=== PATIENT | female | born 1960 | race Caucasian/White ===

== ENCOUNTER → 2016-12-11 | Outpatient (CLI) | payer MEDICARE, MEDICAID ==
[~2016-12-11] MED LIST: DOCU10ELUD GT; FLUT1SPR2; LEVO75TA4 PO; LORA10TA2 PO; MELO7.5T6 PO; OMEP20CA3 PO; PANT40TA2 PO; SUCR1SUS PO; TAB-TAB PO; TOPA100T8 PO; VIACCHW4 PO
--- NOTE | 2016-12-11 10:10 | REPMRS ---
Patient History The patient states she had a clinical breast exam in 11/27. Patient is postmenopausal and is nulliparous. No known family history of cancer. Digital Woman Screen Mammo: December 11, 2016 - Exam #: [id number] Bilateral CC and MLO view(s) were taken. Technologist: Isabel Enriquez, Technologist Prior study comparison: December 08, 2015, digital woman screen mammo performed at [facility]. November 16, 2014, digital woman screen mammo performed at [facility]. September 29, 2013, digital woman screen mammo performed at [facility]. FINDINGS: There are scattered fibroglandular densities. There is a moderate amount of residual fibroglandular tissue which is fairly symmetric. Pacemaker power plant projects over the left breast as before. There is no interval development of dominant mass, architectural distortion, or clustered microcalcification typical of malignancy. There has been no change in the appearance of the mammogram from the prior studies. ASSESSMENT: BI-RADS/ACR category 1 mammogram. Negative. Recommendation Routine screening mammogram of both breasts in 1 year (for women over age 40). This mammogram was interpreted with the aid of an FDA-approved computer-aided dectection system. Electronically Signed By: Goran Villarreal MD 12/11/16 [id number]
== END ==
LOC: M WHC 09:02
PROVIDERS: ATTEND Nurse Practitioner Family
DX: Z12.31 Encounter for screening mammogram for malignant neoplasm of breast (principal); Z92.89 Personal history of other medical treatment
CPT/HCPCS: G0202; G0463

== ENCOUNTER → 2017-01-09 | Outpatient (CLI) | payer MEDICARE, MEDICAID ==
[~2017-01-09] VITALS: Ht 142.2 cm; Wt 53.5 kg
[~2017-01-09] MED LIST changes: +CALC500T49 PO; +LIDOCAINE 2% INJ 100 MG/5 ML SDV (FOR ANES.) As Ordered ONE; +NS 1,000 ML IV SCH; +PROPOFOL 200 MG/20 ML VIAL As Ordered ONE; +fentaNYL 100 MCG/2 ML INJECTION (J3010) As Ordered ONE
--- NOTE | 2017-01-09 11:57 | ROOR ---
Patient Name: Asiya Saini Procedure Date: 01/09/2017 11:32 AM Date of : 1960 Age: 56 Room: [facility] Gender: Female Note Status: Finalized Procedure: Upper GI endoscopy Indications: Pyloric stenosis Providers: Ricardo Kaba MD Referring MD: KAIA GARCIA DO Requesting Provider: Medicines: Monitored Anesthesia Care Complications: No immediate complications. Procedure: Pre-Anesthesia Assessment: - Prior to the procedure, a History and Physical was performed, and patient medications and allergies were reviewed. The patient is unable to give consent secondary to the patient being legally incompetent to consent. The risks and benefits of the procedure and the sedation options and risks were discussed with the patient's brother. All questions were answered and informed consent was obtained. Patient identification and proposed procedure were verified by the physician, the nurse and the anesthesiologist in the endoscopy suite. Mental Status Examination: alert but confused. Airway Examination: normal oropharyngeal airway and neck mobility. Respiratory Examination: clear to auscultation. CV Examination: status post pacemaker placement. Prophylactic Antibiotics: The patient does not require prophylactic antibiotics. Prior Anticoagulants: The patient has taken no previous anticoagulant or antiplatelet agents. ASA Grade Assessment: III - A patient with severe systemic disease. After reviewing the risks and benefits, the patient was deemed in satisfactory condition to undergo the procedure. The anesthesia plan was to use monitored anesthesia care (MAC). Immediately prior to administration of medications, the patient was re-assessed for adequacy to receive sedatives. The heart rate, respiratory rate, oxygen saturations, blood pressure, adequacy of pulmonary ventilation, and response to care were monitored throughout the procedure. The physical status of the patient was re-assessed after the procedure. The Endoscope was introduced through the mouth, and advanced to the pylorus. The upper GI endoscopy was technically difficult and complex due to stricture. The patient tolerated the procedure fairly well. Findings: The examined esophagus was normal. moderately enlarged stomach, Estimated blood loss: none. Estimated blood loss: none. A benign-appearing, intrinsic severe stenosis was found at the pylorus. This was non-traversed. This was biopsied with a cold forceps for histology. Estimated blood loss was minimal. Impression: - Normal esophagus. - Gastric stenosis was found at the pylorus. Biopsied. Recommendation: - Discharge patient to home (ambulatory). - Mechanical soft diet indefinitely. - The findings and recommendations were discussed with the patient's family. - Discussed with brother. No active ulcers noted, fixed stricture at pylorus. Currently able to tolerate soft foods without weight loss. If they decide to have surgery, will refer out to [facility]. Ricardo Kaba MD Ricardo Kaba MD 01/09/2017 11:57:08 AM This report has been signed electronically. Number of Addenda: 0 Note Initiated On: 01/09/2017 11:32 AM Estimated Blood Loss: Estimated blood loss was minimal.
[2017-01-09 12:10] VITALS: BP 117/80
== END ==
LOC: M OPP 10:32
PROVIDERS: ATTEND Surgery
DX: K31.1 Adult hypertrophic pyloric stenosis (principal); E03.9 Hypothyroidism, unspecified; I34.0 Nonrheumatic mitral (valve) insufficiency; K21.9 Gastro-esophageal reflux disease without esophagitis; R56.9 Unspecified convulsions; Q90.9 Down syndrome, unspecified; K27.3 Acute peptic ulcer, site unspecified, without hemorrhage or perforation; Z95.0 Presence of cardiac pacemaker; F41.9 Anxiety disorder, unspecified; G47.30 Sleep apnea, unspecified; R32 Unspecified urinary incontinence; Z79.899 Other long term (current) drug therapy
CPT/HCPCS: 43239; 88305; 99156; 99157; J3010

== ENCOUNTER → 2017-01-21 | Outpatient (REF) | payer MEDICARE, MEDICAID ==
[~2017-01-21] MED LIST changes: -LIDOCAINE 2% INJ 100 MG/5 ML SDV (FOR ANES.) As Ordered ONE; -NS 1,000 ML IV SCH; -PROPOFOL 200 MG/20 ML VIAL As Ordered ONE; -fentaNYL 100 MCG/2 ML INJECTION (J3010) As Ordered ONE
[2017-01-21 11:51] LABS: MEAN CORPUSCULAR HEMOGLOBIN 30.7 pg (27.0-33.0); MEAN CORPUSCULAR HGB CONC 32.3 g/dl (32.0-36.5); RED CELL DISTRIBUTION WIDTH 14.9 % (11.5-14.5); WHITE BLOOD COUNT 4.8 K/mm3 (4.0-10.0)
[2017-01-21 12:09] LABS: ALBUMIN 3.5 GM/DL (3.2-5.2); ALBUMIN/GLOBULIN RATIO 0.81 (1.00-1.93); BILIRUBIN,TOTAL 0.4 MG/DL (0.2-1.0); CALCIUM LEVEL 8.8 MG/DL (8.5-10.1); CREATININE FOR GFR 1.31 MG/DL (0.55-1.02); FREE T4 1.11 NG/DL (0.76-1.46); GLOMERULAR FILTRATION RATE 44.7 (>51); POTASSIUM SERUM 4.1 MEQ/L (3.5-5.1); TOTAL PROTEIN 7.8 GM/DL (6.4-8.2)
== END ==
LOC: M SFHCCLAY 08:40
PROVIDERS: ATTEND Family Medicine
DX: Q90.9 Down syndrome, unspecified (principal); E03.9 Hypothyroidism, unspecified; I49.9 Cardiac arrhythmia, unspecified; K21.9 Gastro-esophageal reflux disease without esophagitis; F03.90 Unspecified dementia, unspecified severity, without behavioral disturbance, psychotic disturbance, mood disturbance, and anxiety; G40.909 Epilepsy, unspecified, not intractable, without status epilepticus

== ENCOUNTER → 2017-07-26 | Outpatient (REF) | payer MEDICARE, MEDICAID ==
[~2017-07-26] MED LIST changes: -MELO7.5T6 PO; +MELO7.5T7 PO; +TOPA100T12 PO; -TOPA100T8 PO
[2017-07-26 11:39] LABS: MEAN CORPUSCULAR HEMOGLOBIN 32.1 pg (27.0-33.0); MEAN CORPUSCULAR HGB CONC 33.3 g/dl (32.0-36.5); MEAN CORPUSCULAR VOLUME 96.5 fl (80.0-96.0); WHITE BLOOD COUNT 4.4 K/mm3 (4.0-10.0)
[2017-07-26 12:10] LABS: ALBUMIN 3.5 GM/DL (3.2-5.2); ALBUMIN/GLOBULIN RATIO 0.74 (1.00-1.93); BILIRUBIN,TOTAL 0.6 MG/DL (0.2-1.0); CALCIUM LEVEL 8.9 MG/DL (8.5-10.1); CREATININE FOR GFR 1.2 MG/DL (0.55-1.02); FREE T4 1.31 NG/DL (0.76-1.46); GLOMERULAR FILTRATION RATE 49.5 (>51); POTASSIUM SERUM 4.3 MEQ/L (3.5-5.1); TOTAL PROTEIN 8.2 GM/DL (6.4-8.2)
== END ==
LOC: M SFHCCLAY 08:31
PROVIDERS: ATTEND Family Medicine
DX: Q90.9 Down syndrome, unspecified (principal); E03.9 Hypothyroidism, unspecified

== ENCOUNTER → 2017-09-17 | Outpatient (REF) | payer MEDICARE, MEDICAID ==
[2017-09-20 00:06] LABS: TOPIRAMATE LEVEL 10.8 ug/mL (2.0-25.0)
== END ==
LOC: M LABDRAWC 17:32
PROVIDERS: ATTEND Physician Assistant Medical
DX: R56.9 Unspecified convulsions (principal); Z51.81 Encounter for therapeutic drug level monitoring; Z79.899 Other long term (current) drug therapy

== ENCOUNTER → 2018-03-06 | Outpatient (CLI) | payer MEDICARE, MEDICAID | LOC: M WHC 10:11 | DX: Z12.31 Encounter for screening mammogram for malignant neoplasm of breast (principal); N95.9 Unspecified menopausal and perimenopausal disorder; R92.8 Other abnormal and inconclusive findings on diagnostic imaging of breast; R92.0 Mammographic microcalcification found on diagnostic imaging of breast; N63.20 Unspecified lump in the left breast, unspecified quadrant; M81.0 Age-related osteoporosis without current pathological fracture | CPT/HCPCS: 77067 ==

== ENCOUNTER → 2018-03-18 | Outpatient (CLI) | payer MEDICARE, MEDICAID | LOC: M RAD 10:22 | DX: Z12.31 Encounter for screening mammogram for malignant neoplasm of breast (principal); N60.02 Solitary cyst of left breast | CPT/HCPCS: 77065 ==

== ENCOUNTER → 2018-10-09 | Outpatient (REF) | payer MEDICARE, MEDICAID ==
[2018-10-11 00:57] LABS: TOPIRAMATE LEVEL 12.3 ug/mL (2.0-25.0)
== END ==
LOC: SKLABADC 09:09
DX: G40.909 Epilepsy, unspecified, not intractable, without status epilepticus (principal)
CPT/HCPCS: 36415

== ENCOUNTER → 2018-10-20 | Outpatient (REF) | payer MEDICARE, MEDICAID ==
[2018-10-20 10:26] LABS: AMMONIA 13 uMOL/L (<32)
== END ==
LOC: SKLABADC 08:56
DX: G40.909 Epilepsy, unspecified, not intractable, without status epilepticus (principal); G93.40 Encephalopathy, unspecified
CPT/HCPCS: 82140

== ENCOUNTER → 2019-03-27 | Outpatient (REF) | payer MEDICARE, MEDICAID ==
[~2019-03-27] MED LIST changes: +LORA-243 PO; -LORA10TA2 PO; -PANT40TA2 PO; +PANT40TA3 PO
[2019-03-30 14:16] LABS: TOPIRAMATE LEVEL 12.9 ug/mL (2.0-25.0)
== END ==
LOC: SKLABADC 09:30
PROVIDERS: ATTEND Physician Assistant Medical
DX: G40.89 Other seizures (principal)

== ENCOUNTER → 2019-06-04 | Outpatient (REF) | payer MEDICARE, MEDICAID ==
[~2019-06-04] MED LIST changes: -OMEP20CA3 PO; +OMEP20CA4 PO
== END ==
LOC: M SFHCCLAY 10:38
PROVIDERS: ATTEND Family Medicine
DX: R56.9 Unspecified convulsions (principal)
CPT/HCPCS: 81002; 87086; G0463

== ENCOUNTER → 2019-06-08 | Outpatient (REF) | payer MEDICARE, MEDICAID ==
[2019-06-10 00:06] LABS: TOPIRAMATE LEVEL 16.4 ug/mL (2.0-25.0)
== END ==
LOC: SKLABADC 09:15
PROVIDERS: ATTEND Physician Assistant Medical
DX: R56.9 Unspecified convulsions (principal)

== ENCOUNTER → 2019-06-24 | Outpatient (REF) | payer MEDICARE, MEDICAID ==
[2019-06-24 10:53] LABS: HEMATOCRIT 49.2 % (36.0-47.0); MEAN CORPUSCULAR HEMOGLOBIN 31.5 pg (27.0-33.0); MEAN CORPUSCULAR HGB CONC 32.5 g/dl (32.0-36.5); MEAN CORPUSCULAR VOLUME 96.9 fl (80.0-96.0); PLATELET COUNT, AUTOMATED 221 10^3/uL (150-450); RED BLOOD COUNT 5.08 10^6/uL (4.00-5.40); WHITE BLOOD COUNT 6.5 10^3/uL (4.0-10.0)
[2019-06-24 11:20] LABS: CALCIUM LEVEL 8.9 MG/DL (8.5-10.1); CREATININE FOR GFR 1.13 MG/DL (0.55-1.30); GLOMERULAR FILTRATION RATE 52.6 (>51)
== END ==
LOC: SKLABADC 09:49
PROVIDERS: ATTEND Physician Assistant
DX: R94.31 Abnormal electrocardiogram [ECG] [EKG] (principal)

== ENCOUNTER → 2019-06-30 | Outpatient (CLI) | payer MEDICARE, MEDICAID ==
--- NOTE | 2019-06-30 12:24 | REPMRS ---
Patient History The patient states she had a clinical breast exam in 06/2019. Patient is postmenopausal and is nulliparous. No known family history of cancer. No Hormone Replacement Therapy 3D TOMOSYNTHESIS WAS PERFORMED. The Chaya Muñoz lifetime risk for breast cancer is 7.9%. Digital Woman Screen Mammo: June 30, 2019 - Exam #: [id number] Bilateral CC and MLO view(s) were taken. Technologist: Isabel Enriquez, Technologist Prior study comparison: March 18, 2018, left breast digital mammo diagnostic unilateral, performed at [facility]. March 06, 2018, digital woman screen mammo performed at [facility]. FINDINGS: The breast tissue is heterogeneously dense. This may lower the sensitivity of mammography. There has been no change in the appearance of the mammogram from the prior studies. There is a moderate amount of residual fibroglandular tissue which is fairly symmetric. There is no interval development of dominant mass, areas of architectural distortion, or clustered microcalcification typical of malignancy. Assessment: BI-RADS/ACR category 1 mammogram. Negative Mammogram. Recommendation Routine screening mammogram in 1 year (for women over age 40). This mammogram was interpreted with the aid of an FDA-approved computer-aided dectection system. Electronically Signed By: Car Jenkins MD 06/30/19 [id number]
== END ==
LOC: M WHC 10:31
PROVIDERS: ATTEND Nurse Practitioner Family
DX: Z12.31 Encounter for screening mammogram for malignant neoplasm of breast (principal); Z78.0 Asymptomatic menopausal state
CPT/HCPCS: 77063; 77067; G0463

== ENCOUNTER 2019-09-10 10:42 | Emergency (ER) | payer MEDICARE, MEDICAID ==
[~2019-09-10] VITALS: Ht 132.1 cm; Wt 56.1 kg
[2019-09-10] MEDS ORDERED: TOPA100T12 PO (11:25)
[2019-09-10] MEDS ORDERED: TOPA50TA8 PO (11:26)
[2019-09-10 12:08] LABS: BASO # 0.1 10^3/uL (0.0-0.2); BASO % 1.1 % (0.0-1.0); EOS % 0.5 % (0.0-3.0); HEMATOCRIT 48.1 % (36.0-47.0); HEMOGLOBIN 15.8 g/dl (12.0-15.5); LYMPH # 1.2 10^3/uL (1.5-5.0); LYMPH % 18.5 % (24.0-44.0); MEAN CORPUSCULAR HEMOGLOBIN 32.1 pg (27.0-33.0); MEAN CORPUSCULAR HGB CONC 32.8 g/dl (32.0-36.5); MEAN CORPUSCULAR VOLUME 97.8 fl (80.0-96.0); MONO # 0.5 10^3/uL (0.0-0.8); MONO % 8.5 % (0.0-5.0); NEUTROPHILS # 4.4 10^3/uL (1.5-8.5); NEUTROPHILS % 70.9 % (36.0-66.0); PLATELET COUNT, AUTOMATED 197 10^3/uL (150-450); RED BLOOD COUNT 4.92 10^6/uL (4.00-5.40); WHITE BLOOD COUNT 6.2 10^3/uL (4.0-10.0)
[2019-09-10 12:30] LABS: ALBUMIN 3.3 GM/DL (3.2-5.2); BILIRUBIN,TOTAL 0.4 MG/DL (0.2-1.0); CALCIUM LEVEL 8.6 MG/DL (8.5-10.1); CREATININE FOR GFR 1.31 MG/DL (0.55-1.30); GLOMERULAR FILTRATION RATE 44.4 (>51); POTASSIUM SERUM 4.3 MEQ/L (3.5-5.1); TOTAL PROTEIN 7.2 GM/DL (6.4-8.2)
[2019-09-10] MEDS ORDERED: MIDAZOLAM INJ 5 MG/ML VIAL (J2250) ONE (12:30)
--- NOTE | 2019-09-10 13:27 | REP ---
CT brain: 09/10/2019. Indication: Seizure. Comparison: MRI brain dated 10/16/2011. Technique: Unenhanced axial CT images of the brain were obtained from skull base to vertex. Findings: There is no acute intracranial hemorrhage, acute cortical infarction, mass effect or hydrocephalous. Mild diffuse volume loss and bilateral basal ganglial mineralization are noted. There is no evidence of an acute calvarial fracture. Small focal left parietal outer table exostosis and chronic inflammatory sequelae of the right mastoid air cells are present. Impression: No acute intracranial process or evidence of definite seizure focus. Electronically Signed by Herve Robles DO 09/10/2019 01:18 P
[2019-09-10] MEDS ORDERED: NYSTOI TOP (15:30)
[2019-09-10] MEDS ORDERED: CIPR-249 PO (16:22)
[2019-09-10 16:27] VITALS: BP 101/55
[2019-09-10] MEDS ORDERED: CIPROFLOXACIN 500 MG TAB PO ONE (16:30)
--- NOTE | 2019-09-10 21:41 | ECGEPIP ---
[facility] - ED Test Date: 2019-09-10 Pat Name: RAHEL MURPHY Department: Room: - Gender: Female [employer]: kg : 1960 Requested By: Asha Becerra Order Number: [id number] Reading MD: Nino Llamas Measurements Intervals Wheeler Rate: 69 P: 71 DC: 145 QRS: -39 QRSD: 87 T: 76 QT: 403 QTc: 434 Interpretive Statements ELECTRONIC ATRIAL PACEMAKER LEFT AXIS DEVIATION RHYTHM CHANGE COMPARED TO 07/26/16 Electronically Signed on 09-10-2019 21:41:11 EDT by Nino Llamas
== END 2019-09-10 17:15 | disposition home or self-care (01) ==
LOC: M ED 10:42
DX: R56.9 Unspecified convulsions (principal); N39.0 Urinary tract infection, site not specified; Q90.9 Down syndrome, unspecified; F03.90 Unspecified dementia, unspecified severity, without behavioral disturbance, psychotic disturbance, mood disturbance, and anxiety; G47.30 Sleep apnea, unspecified; E07.9 Disorder of thyroid, unspecified; Z79.899 Other long term (current) drug therapy; Z79.890 Hormone replacement therapy
CPT/HCPCS: 36415; 70450; 80053; 81001; 85025; 87086; 93005; 99284; J2250

== ENCOUNTER → 2019-09-21 | Outpatient (REF) | payer MEDICARE, MEDICAID ==
[~2019-09-21] MED LIST changes: +CIPR-249 PO; +NYSTOI TOP; +TOPA50TA8 PO
[2019-09-23 00:06] LABS: TOPIRAMATE LEVEL 18.4 ug/mL (2.0-25.0)
== END ==
LOC: SKLABADC 10:30
PROVIDERS: ATTEND Physician Assistant Medical
DX: G40.909 Epilepsy, unspecified, not intractable, without status epilepticus (principal)

== ENCOUNTER → 2019-10-29 | Outpatient (REF) | payer MEDICARE, MEDICAID ==
[~2019-10-29] MED LIST changes: +OMEP-172 PO; -OMEP20CA4 PO
[2019-10-29 14:01] LABS: FREE T4 1.34 NG/DL (0.76-1.46); THYROID STIMULATING HORMONE 0.299 uIU/ML (0.358-3.740)
== END ==
LOC: SKLABADC 10:55
PROVIDERS: ATTEND Family Medicine
DX: E03.9 Hypothyroidism, unspecified (principal)

== ENCOUNTER → 2020-04-18 | Outpatient (REF) | payer MEDICARE, MEDICAID ==
[~2020-04-18] MED LIST changes: -OMEP-172 PO; +OMEP1CAP73 PO; +SUCR1ORA PO; -SUCR1SUS PO
== END ==
LOC: M LABDRAWC 11:14
PROVIDERS: ATTEND Physician Assistant Medical
DX: G40.909 Epilepsy, unspecified, not intractable, without status epilepticus (principal)

== ENCOUNTER → 2020-05-09 | Outpatient (CLI) | payer MEDICARE, MEDICAID ==
[~2020-05-09] MED LIST changes: +FLON1SPR NARES; +LAMI25TA PO; +[UNRECOGNIZED DRUG - OTHER] PO
== END ==
LOC: M LABSMTC 11:28
PROVIDERS: ATTEND Anesthesiology
DX: Z01.818 Encounter for other preprocedural examination (principal); Z11.59 Encounter for screening for other viral diseases
CPT/HCPCS: C9803; U0003

== ENCOUNTER 2020-05-12 06:16 | Day surgery (SDC) | payer MEDICARE, MEDICAID ==
[~2020-05-12] VITALS: Ht 157.5 cm; Wt 52.2 kg
[~2020-05-12 06:16] MED LIST changes: +LIDOCAINE 1% MDV 20ML VIAL SQ PRN; +LR 1,000 ML IV ONE
[2020-05-12] MEDS ORDERED: ceFAZolin SOD 1 GM in D5W MINI-BAG PLUS 50 ML IV ONE (07:00)
[2020-05-12] MEDS ORDERED: ISOVUE-300 61% 50ML VIAL As Ordered ONE (07:15)
[2020-05-12] MEDS ORDERED: LIDOCAINE 1% SDV 30ML VIAL As Ordered ONE (07:15)
[2020-05-12] MEDS ORDERED: BACITRACIN PWD 50,000 UNITS VIAL As Ordered ONE (07:15)
[2020-05-12] MEDS ORDERED: AMIODARONE 150MG/3ML INJ (J0282) As Ordered ONE (07:15)
[2020-05-12] MEDS ORDERED: AMIODARONE HCL 150 MG/100 ML PREMIXED BAG (NEXTERONE) (J0282 PER 30MG) As Ordered ONE (07:20)
[2020-05-12] MEDS ORDERED: fentaNYL 100 MCG/2 ML INJECTION (J3010) As Ordered ONE (07:49)
[2020-05-12] MEDS ORDERED: propofoL 200 MG/20 ML VIAL As Ordered ONE (07:49)
[2020-05-12] MEDS ORDERED: LIDOCAINE 2% 100MG/5ML SDV (FOR ANES.) As Ordered ONE (07:49)
[2020-05-12] MEDS ORDERED: ePHEDrine SULFATE 25 MG/5 ML(5MG/ML) SYRINGE As Ordered ONE (07:49)
[2020-05-12] MEDS ORDERED: MIDAZOLAM INJ 2MG/2ML VIAL (J2250 PER 1MG) As Ordered ONE (07:49)
[2020-05-12 09:00] VITALS: BP 101/63
--- NOTE | 2020-05-12 09:13 | RO ---
DATE OF PROCEDURE: 05/12/2020 PROCEDURES: 1. Explantation of depleted pacemaker pulse generator. 2. Testing of old atrial and ventricular pacing leads. 3. Implantation of new dual-chamber pacemaker pulse generator. IMPLANTING ASSAYER: Jayden Ferrera MD ANESTHESIOLOGIST: Dr. Hall. PREOPERATIVE DIAGNOSES: 1. Pacemaker pulse generator battery depletion. 2. Sinus node dysfunction. POSTOPERATIVE DIAGNOSES: 1. Pacemaker pulse generator battery depletion. 2. Sinus node dysfunction. TYPE OF ANESTHESIA: Monitored local anesthesia. CLINICAL SUMMARY: This 59-year-old woman, disabled (mental deficiency) resident of [place], [place], is well known to our cardiology practice with mitral valve disorder, abnormal electrocardiogram (EKG), sinus node dysfunction, status post pacemaker implant 12/17/2011, and obstructive sleep apnea has been followed on a regular basis through our office and has recently been found to have her pacemaker showing the elective replacement indicator. Her current surgery was arranged. According to her caregiver, she has been free of any cardiovascular complaint. On examination, she is an overweight woman with Down syndrome. Heart rate 64 beats per minute (BPM) and regular, blood pressure 122/64, respiratory rate 16, body mass index (BMI) not calculated, unable to stand, home weight 115 pounds, height 52 inches. Examined in her wheelchair, as she is unable to get onto the examination table. No pallor or icterus. Normal oral moisture. No central cyanosis. Neck veins were 2 cm above the sternal angle. Trachea midline. Thyroid not enlarged. Normal chest configuration and chest expansion with pacemaker incision in left subclavian region. Good air entry over both lung britt with no abnormal adventitious sounds. Apical impulse in normal position. Normal heart sounds with no audible murmur. No pedal edema. Normal peripheral pulses.Soft abdomen. EKG shows consistent atrially paced rhythm at 70 BPM. Spontaneous AV conduction with no QRS complexes. Slightly slow precordial R wave progression with persistent S-wave V5 and V6 in keeping with body habitus versus pulmonary disease. Minor lateral ST/T-wave abnormalities unchanged from April 2018. Pacemaker interrogation indicating expected life of less than 3 months. Excellent intracardiac electrograms and pacing thresholds. DESCRIPTION OF PROCEDURE: In the fasting state following informed consent from her caregiver and healthcare proxy, the patient was given Ancef 1 gram intravenous (IV) premedication and taken to the operating theater. Numerous skin electrodes were applied to facilitate continuous electrocardiographic monitoring. The left subclavian region was then prepped and draped in usual fashion, and the skin over the old pacemaker incision was infiltrated with 1% Xylocaine. A 5-cm linear incision was made over the same scar, and careful dissection was carried down to the level of the depleted pacemaker which was then explanted ([employer], model number 2110, serial number [id number] implanted 12/17/2011), and the old atrial and ventricular pacing leads were disconnected and tested individually. The right ventricular lead ([employer] model number 2088T, serial number [id number]) measurements were: Stimulation threshold 1.2 V/0.4 ms/impedance 477 ohms. The R wave amplitude measured 17.9. The atrial lead ([employer] model number 2088T, serial number [id number]) measurements were: Stimulation threshold 0.8V/0.4 ms/impedance 476 ohms. The P wave amplitude measured 3.9 mV. These old pacing leads were then connected to a new dual-chamber pulse generator ([employer] model number VK2379, serial number [id number]) and appropriate DDD pacing was documented. The old pacer pocket was thoroughly irrigated with a bacitracin solution. The new pulse generator was placed in the pocket and secured in position with a suture through the upper right-hand corner of the epoxy header. The subcutaneous tissues were approximated using a running chromic suture, and the skin was closed using jayme. A dry dressing was applied, and the patient was returned to the recovery room in good condition. ESTIMATED BLOOD LOSS: 2 mL. No apparent complications. The patient will be able to be discharged home once she is awake. We will instruct her caregiver to avoid getting her incision wet until her jayme are removed in our office 05/19/2020 at 09:30 a.m.. We have encouraged her to contact us should she notice any abnormal erythema, swelling, or discharge. Her medications will resume: levofloxacin 75 mcg daily, Protonix 40 mg twice a day, calcium carbonate acid 500 mg daily, loratadine 10 mg daily, Nasonex 50 mcg per ACT one inhalation each nostril as needed, Topamax 100 mg by mouth twice a day, and lamotrigine 25 mg tablets two tablets twice a day. MTDD
== END 2020-05-12 09:18 | disposition home or self-care (01) ==
LOC: M SDC 06:16
PROVIDERS: ATTEND Internal Medicine Cardiovascular Disease
DX: Z45.010 Encounter for checking and testing of cardiac pacemaker pulse generator [battery] (principal); I49.5 Sick sinus syndrome; E03.9 Hypothyroidism, unspecified; K21.9 Gastro-esophageal reflux disease without esophagitis; Z79.899 Other long term (current) drug therapy; F41.9 Anxiety disorder, unspecified; G47.30 Sleep apnea, unspecified; E66.3 Overweight; Q90.9 Down syndrome, unspecified
CPT/HCPCS: 33228; C1785; J0690; J2250; J3010